=== PATIENT | female | born 1995 | race African-American/Black ===

== ENCOUNTER 2022-07-27 06:31 | Emergency (ER) | payer OTHER ==
[~2022-07-27] VITALS: Ht 175.3 cm; Wt 114.0 kg
[2022-07-27] MEDS ORDERED: LOPERAMIDE 2MG/15ML UDC PO ONE (07:30)
[2022-07-27 08:05] LABS: HEMATOCRIT. 44.3 % (36.0-48.0); HEMOGLOBIN. 14.5 g/dL (12.0-16.0); MEAN CORPUSCULAR HEMOGLOBIN 26.8 pg (28.0-32.0); MEAN CORPUSCULAR VOLUME 81.5 fL (81.0-99.0); MEAN PLATELET VOLUME 9.3 fl (7.4-10.4); PLATELET 238 x1000/uL (130-400); RED BLOOD CELL COUNT 5.43 mill/uL (4.2-5.4); RED CELL DISTRIBUTION WIDTH 14.4 % (11.6-14.6)
[2022-07-27 08:12] LABS: CLARITY URINE CLOUDY (CLEAR); COLOR URINE YELLOW (YELLOW); KETONES URINE TRACE (NEGATIVE); LEUKOCYTE ESTERASE URINE NEGATIVE (NEGATIVE); NITRITE URINE NEGATIVE (NEGATIVE); OCCULT BLOOD URINE TRACE (NEGATIVE); PH URINE 5.5 (4.5-8.0); PROTEIN URINE 1+ (NEGATIVE); SPECIFIC GRAVITY URINE 1.021 (1.005-1.030); UROBILINOGEN URINE 0.2 E.U./dL (0.2-1.0)
[2022-07-27 08:19] LABS: CHLORIDE 100 mEq/L (98-107)
[2022-07-27] MEDS ORDERED: IBUPROFEN 600MG TABLET PO ONE (09:00)
[2022-07-27 09:04] LABS: PLATELET ESTIMATE NORMAL
[2022-07-27 09:09] VITALS: BP 137/80
[2022-07-27] MEDS ORDERED: IMOD MT (11:05)
[2022-07-27] MEDS ORDERED: CIPR250T4 MT (11:05)
== END 2022-07-27 11:15 | disposition home or self-care (01) ==
LOC: ER 06:31
DX: K52.9 Noninfective gastroenteritis and colitis, unspecified (principal)
CPT/HCPCS: 36415; 74176; 80053; 81003; 85025; 99284